=== PATIENT | female | born 1965 | race Caucasian/White ===

== ENCOUNTER → 2019-05-23 | Outpatient (CLI) | payer BC | END | disposition home or self-care (01) | LOC: CFH 13:03 | PROVIDERS: ATTEND Specialist | DX: N64.4 Mastodynia (principal) | CPT/HCPCS: 77066 ==

== ENCOUNTER 2020-02-18 11:31 | Inpatient (IN) | payer BC ==
[~2020-02-18] VITALS: Ht 172.7 cm; Wt 79.9 kg
[2020-02-18] MEDS ORDERED: ONDANSETRON 2MG/ML, 2ML IVPush ONE (12:00)
[2020-02-18] MEDS ORDERED: SODIUM CHLORIDE FLUSH 10ML SYR IVF ONE (12:00)
[2020-02-18 12:13] LABS: BASOPHILS % (AUTO) 1 % (0-1); EOSINOPHILS % (AUTO) 0 % (1-7); LYMPHOCYTES % (AUTO) 12 % (22-44); MEAN CORPUSCULAR HEMOGLOBIN 31.1 pg (27.0-34.8); MEAN CORPUSCULAR HGB CONC 33.4 g/dL (32.4-35.8); MEAN PLATELET VOLUME 8.4 fL (7.4-10.4); MONOCYTES % (AUTO) 7 % (2-9); NEUTROPHILS % (AUTO) 80 % (42-75); PLATELET COUNT 333 x10^3/uL (130-400); RED BLOOD COUNT 5.51 x10^6/uL (3.82-5.3)
[2020-02-18] MEDS ORDERED: ONDANSETRON 2MG/ML, 2ML ONE ×2 (12:22→21:04)
[2020-02-18] MEDS ORDERED: MORPHINE SULFATE 4 MG/ML, 1ML ONE ×3 (12:22→18:49)
[2020-02-18 12:24] LABS: ANION GAP 8 mmol/L (5-15); CALCIUM 10.6 mg/dL (8.5-10.1); CHLORIDE 112 mmol/L (98-107)
[2020-02-18 12:27] LABS: ALANINE AMINOTRANSFERASE 20 U/L (12-78); ALKALINE PHOSPHATASE 77 U/L (45-117); BILIRUBIN,TOTAL 0.8 mg/dL (0.2-1.0); CREATININE 1.18 mg/dL (0.55-1.02); TOTAL PROTEIN 7.8 g/dL (6.4-8.2)
[2020-02-18] MEDS: MORPHINE SULFATE 4 MG/ML, 1ML IVPush PRN ×2 (12:32→15:11)
[2020-02-18 12:36] LABS: MD SCAN
[2020-02-18] MEDS ORDERED: OMNIPAQUE 350 MG/ML, 100ML BOTTLE ONE (12:45)
--- NOTE | 2020-02-18 12:54 | NUR ---
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
--- NOTE | 2020-02-18 13:19 | NUR ---
URINE SAMPLE COLLECTED.
[2020-02-18 13:29] LABS: MICROSCOPIC AUTO
[2020-02-18] MEDS ORDERED: methylPREDNISolone SOD SUCC 125 MG/2 ML IVPush ONE (15:00)
[2020-02-18] MEDS ORDERED: methylPREDNISolone SOD SUCC 125 MG/2 ML ONE ×2 (15:05→21:00)
[2020-02-18] MEDS ORDERED: ACETAMINOPHEN 325 MG TABLET PO PRN (15:30)
[2020-02-18] MEDS: methylPREDNISolone SOD SUCC 125 MG/2 ML IVPush SCH ×2 (15:30→21:45)
[2020-02-18] MEDS ORDERED: hydrALAzine 20 MG/ML, 1ML IVPush PRN (15:30)
[2020-02-18] MEDS ORDERED: LABETALOL 5MG/ML, 20ML IVPush PRN (15:30)
[2020-02-18] MEDS ORDERED: ONDANSETRON 2MG/ML, 2ML IVPush PRN (15:30)
[2020-02-18] MEDS ORDERED: PROMETHAZINE 25 MG/ML, 1ML IM PRN (15:30)
[2020-02-18] MEDS ORDERED: morphine SULFATE 10 MG/ML, 1ML IVPush PRN (15:30)
[2020-02-18 16:05] LABS: BASOPHILS % (AUTO) 1 % (0-1); EOSINOPHILS % (AUTO) 0 % (1-7); LYMPHOCYTES % (AUTO) 11 % (22-44); MEAN CORPUSCULAR HEMOGLOBIN 30.9 pg (27.0-34.8); MEAN CORPUSCULAR HGB CONC 32.8 g/dL (32.4-35.8); MEAN PLATELET VOLUME 8.6 fL (7.4-10.4); MONOCYTES % (AUTO) 7 % (2-9); NEUTROPHILS % (AUTO) 81 % (42-75); PLATELET COUNT 320 x10^3/uL (130-400); RED BLOOD COUNT 5.53 x10^6/uL (3.82-5.3); RED CELL DISTRIBUTION WIDTH 14.1 % (9.6-15.2)
[2020-02-18 16:06] LABS: MD NO
[2020-02-18] MEDS: SODIUM CHLORIDE 0.9% 1,000 ML IV SCH (16:06)
[2020-02-18 16:07] LABS: HCT (SEDRATE) 51.6 % (34.6-47.8)
[2020-02-18 16:18] LABS: C-REACTIVE PROTEIN, QUANT 1.6 mg/dL (0.02-0.49)
--- NOTE | 2020-02-18 17:55 | NUR ---
REPORT RECEIVED FROM JAVON COPELAND. PT TRANSFERED TO ROOM 37. PLACED ON HOSPITAL BED, CONNECTED TO MONITORING, RESP EVEN AND UNLABORED,
[2020-02-18] MEDS ORDERED: LABETALOL 20 MG/4 ML ONE (18:16)
--- NOTE | 2020-02-18 18:19 | NUR ---
PT HYPERTENSIVE, MEDICATED PER EMAR. PT RESTING ON HOSPITAL BED W/ CALL LIGHT IN REACH, RESP EVEN AND UNLABORED, NADN.
--- NOTE | 2020-02-18 19:02 | NUR ---
CLEAR LIQUID DIET TRAY DELIVERED TO PT. PT HAS C/O 10/10 PAIN. MEDICATED PER EMAR. RESP EVEN AND UNLABORED, NADN. UPDATED ON POC FOR ADMIT. REPORT GIVEN TO KARLI COPELAND.
--- NOTE | 2020-02-18 19:38 | NUR ---
PT NOTED TO DESAT WHILE RESTING TO 86%. PLACED ON 1.5L NC OF SUPPLIMENTAL OXYGEN. PATIENT WENT UP TO 97% WHEN ON THE OXYGEN. RESTING COMFORTABLY, OFFERS NO FURTHER COMPLAINTS AT THIS TIME. WILL CON'T TO MONITOR
[2020-02-19] MEDS: methylPREDNISolone SOD SUCC 125 MG/2 ML IVPush SCH (03:30)
[2020-02-19] MEDS: SODIUM CHLORIDE 0.9% 1,000 ML IV SCH (04:44)
[2020-02-19] MEDS ORDERED: methylPREDNISolone SOD SUCC 125 MG/2 ML ONE (04:45)
[2020-02-19 06:24] LABS: CHLORIDE 113 mmol/L (98-107)
[2020-02-19 06:31] LABS: ALANINE AMINOTRANSFERASE 13 U/L (12-78); ALBUMIN 3.3 g/dL (3.4-5.0); ALKALINE PHOSPHATASE 59 U/L (45-117); ANION GAP 7 mmol/L (5-15); BILIRUBIN,TOTAL 0.4 mg/dL (0.2-1.0); CALCIUM 9.1 mg/dL (8.5-10.1); CREATININE 0.76 mg/dL (0.55-1.02); TOTAL PROTEIN 6.6 g/dL (6.4-8.2)
--- NOTE | 2020-02-19 06:45 | NUR ---
[employer] Sales Representative was called to patients room, when teletypewriter installer entered the room, patient was sitting up in bed stating "I have been calling for over an hour and half, I needed to use the restroom and now I just peed the bed." Patient visably upset, teletypewriter installer changed bed. Patient used restroom and is bed rest in bed at this time
--- NOTE | 2020-02-19 07:51 | NUR ---
pt resting comfortably in [facility]. no acute distress. per pt [facility] called and covid test is negative
--- NOTE | 2020-02-19 08:52 | NUR ---
hospitalist at bedside
--- NOTE | 2020-02-19 10:11 | NUR ---
PT PROVIDED WITH MEAL TRAY. DENIES FURTHER NEEDS AT THIS TIME
[2020-02-19] MEDS ORDERED: HYDROcodone/APAP 5/325 TABLET ONE (11:05)
[2020-02-19] MEDS: HYDROcodone/APAP 5/325 TABLET PO PRN ×2 (11:07→21:23)
[2020-02-19] MEDS: MESALAMINE 400 MG CAPSULE.DR PO SCH ×3 (12:05→21:11)
--- NOTE | 2020-02-19 12:08 | NUR ---
BREAK RN: PT MED NOTED. PT OOB AND AMBULATED TO BATHROOM, UPRIGHT STEADY GAIT.
[2020-02-19 13:26] VITALS: BP 161/97
[2020-02-19] MEDS ORDERED: KETOROLAC 30 MG/1 ML IVPush ONE (15:30)
[2020-02-19] MEDS ORDERED: DIPHENHYDRAMINE 50 MG/ML, 1ML IVPush ONE (15:30)
[2020-02-19] MEDS ORDERED: METOCLOPRAMIDE 5 MG/ML, 2ML IVPush ONE (15:30)
[2020-02-19] MEDS: methylPREDNISolone SOD SUCC 40 MG/ML IVPush SCH (16:23)
[2020-02-19 18:39] VITALS: BP 143/86
[2020-02-19] MEDS ORDERED: methylPREDNISolone SOD SUCC 40 MG/ML IVPush SCH (21:00)
[2020-02-19] MEDS ORDERED: VENL37.52 PO (23:40)
[2020-02-19] MEDS ORDERED: ESTR1CAP PO (23:40)
[2020-02-19] MEDS ORDERED: AZAT50TA9 PO (23:41)
[2020-02-20 00:54] VITALS: BP 151/91
[2020-02-20 06:24] VITALS: BP 146/93
[2020-02-20] MEDS: methylPREDNISolone SOD SUCC 40 MG/ML IVPush SCH (08:39)
[2020-02-20] MEDS: MESALAMINE 400 MG CAPSULE.DR PO SCH (08:39)
[2020-02-20] MEDS ORDERED: METH4TAB2 PO (08:59)
== END 2020-02-20 10:20 | disposition home or self-care (01) | DRG 385 ==
LOC: ED 12:09 → EDIP 15:25 → 4WST 02-19 13:23 → DCLOUNGE 02-20 10:10
PROVIDERS: ADMIT Family Medicine; ATTEND Hospitalist
DX: K50.90 Crohn's disease, unspecified, without complications (principal); N17.0 Acute kidney failure with tubular necrosis; E83.52 Hypercalcemia; R73.9 Hyperglycemia, unspecified
CPT/HCPCS: 36415; 74177; 80053; 81001; 82330; 83036; 83690; 83735; 83970; 84100; 84443; 85025; 85651; 86140; 87086; 96374; 99285; G0378; J1885; J2405; Q9967; J2270; J2920; J2930; J7030

== ENCOUNTER → 2020-07-08 | Outpatient (CLI) | payer BC ==
[~2020-07-08] MED LIST: AZAT50TA9 PO; ESTR1CAP PO; METH4TAB2 PO; REGADENOSON 0.4 MG/5 ML SYRINGE ONE; VENL37.52 PO
== END | disposition home or self-care (01) ==
LOC: CFH 08:00
PROVIDERS: ATTEND Internal Medicine Cardiovascular Disease
DX: I21.09 ST elevation (STEMI) myocardial infarction involving other coronary artery of anterior wall (principal); I44.7 Left bundle-branch block, unspecified; R06.02 Shortness of breath; I10 Essential (primary) hypertension
CPT/HCPCS: 78452; 93017; A9502; J2785